=== PATIENT | male | born 1955 | race Caucasian/White ===

== ENCOUNTER 2016-07-22 11:30 | Inpatient (IN) | payer MEDICAID ==
[~2016-07-22] VITALS: Ht 193 cm; Wt 117.5 kg
[~2016-07-22 11:30] MED LIST: METH40TA2 PO
[2016-07-22] MEDS ORDERED: IPRATROPIUM NEB FS 0.5 MG/2.5 ML AMPUL.NEB ONE ×2 (12:47→15:29)
[2016-07-22] MEDS ORDERED: ALBUTEROL FS 2.5 MG/3 ML VIAL.NEB ONE ×3 (12:47→15:29)
[2016-07-22] MEDS ORDERED: methylPREDNISolone SOD SUCC 125 MG/2ML VIAL ONE (12:53)
[2016-07-22] MEDS ORDERED: IPRATROPIUM NEB FS 0.5 MG/2.5 ML AMPUL.NEB NEB ONE ×2 (13:00→15:30)
[2016-07-22] MEDS ORDERED: ALBUTEROL FS 2.5 MG/3 ML VIAL.NEB NEB ONE ×3 (13:00→15:30)
[2016-07-22] MEDS ORDERED: methylPREDNISolone SOD SUCC 125 MG/2ML VIAL IV ONE (13:00)
[2016-07-22 13:24] LABS: BASOPHILS % (AUTO) 0.3 % (0.0-2.0); DIFF TOTAL % 100 %; EOSINOPHILS # (AUTO) 0.2 /CMM (0.0-0.7); EOSINOPHILS % (AUTO) 2.9 % (0.0-6.0); HEMATOCRIT 43 % (39-51); HEMOGLOBIN 14.1 g/dL (13.5-17.5); LYMPHOCYTES # (AUTO) 3.1 /CMM (0.8-4.8); LYMPHOCYTES % (AUTO) 42.3 % (20.0-44.0); MEAN CORPUSCULAR HEMOGLOBIN 31 PG (26.0-33.0); MEAN CORPUSCULAR HGB CONC 33 g/dl (31.0-36.0); MEAN CORPUSCULAR VOLUME 95 fL (80-96); MONOCYTES # (AUTO) 0.7 /CMM (0.1-1.30); MONOCYTES % (AUTO) 9.4 % (2.0-12.0); NEUTROPHILS # (AUTO) 3.3 /CMM (1.8-8.9); NEUTROPHILS % (AUTO) 45.1 % (43.0-81.0); PLATELET COUNT (AUTO) 169 /CMM (150-450); RED BLOOD CELL COUNT(AUTO) 4.51 MIL/uL (4.5-6.0); WHITE BLOOD COUNT (AUTO) 7.4 K/uL (4.3-11.0)
[2016-07-22 13:31] LABS: ANION GAP 9 (5-14); CALCIUM, SERUM 8.5 mg/dL (8.5-10.1); CARBON DIOXIDE 32 mmol/L (21-32); CHLORIDE 104 mmol/L (98-107); GFR 76 mL/min (>60); GLUCOSE 66 mg/dL (74-106); POTASSIUM 4.5 mmol/L (3.5-5.1); SODIUM SERUM 140 mmol/L (136-145); UREA NITROGEN, BLOOD 21 mg/dL (7-18)
[2016-07-22 13:36] LABS: TROPONIN I < 0.017 ng/mL (0.00-0.056)
[2016-07-22 13:43] LABS: ALANINE AMINOTRANSFERASE 98 U/L (12-78); ALBUMIN 3.5 g/dL (3.4-5.0); ASPARTATE AMINOTRANSFERASE 100 U/L (15-37); BILIRUBIN,DIRECT 0.1 mg/dL (0.0-0.2); BILIRUBIN,TOTAL 0.4 mg/dL (0.2-1.0); INDIRECT BILIRUBIN 0.3 mg/dL (0.0-1.1)
[2016-07-22] MEDS ORDERED: DEXAMETHASONE SOD PHOSPHATE 10 MG/ML VIAL IV ONE (15:30)
[2016-07-22] MEDS ORDERED: DEXAMETHASONE SOD PHOSPHATE 10 MG/ML VIAL ONE (15:59)
[2016-07-22] MEDS ORDERED: IV SET PRIMARY PUMP SET 1 EA INFUS.SET MC ONE ×2 (15:59→16:08)
[2016-07-22] MEDS ORDERED: AZITHROMYCIN 500 MG in IV D5W 250 ML IV ONE (16:00)
[2016-07-22] MEDS ORDERED: ALPR2TAB2 PO (16:25)
[2016-07-22] MEDS ORDERED: ALBUTEROL FS 2.5 MG/0.5 ML VIAL.NEB NEB ONE (16:30)
[2016-07-22] MEDS ORDERED: LORAZEPAM 0.5 MG TABLET PO PRN (17:00)
[2016-07-22] MEDS ORDERED: MAGNESIUM HYDROXIDE 30 ML UDC PO PRN (17:00)
[2016-07-22] MEDS: methylPREDNISolone SOD SUCC 125 MG/2ML VIAL IV SCH ×2 (17:00→21:43)
[2016-07-22] MEDS ORDERED: ACETAMINOPHEN 325 MG TABLET PO PRN (17:00)
[2016-07-22] MEDS ORDERED: HYDROCODONE/APAP 5/325MG 1 EACH TABLET PO PRN (17:00)
[2016-07-22] MEDS ORDERED: MAG HYDROX/AL HYDROX/SIMETH 30 ML UDC PO PRN (17:00)
[2016-07-22] MEDS ORDERED: ZOLPIDEM TARTRATE 5 MG TABLET PO PRN (17:00)
[2016-07-22] MEDS ORDERED: ONDANSETRON HCL/PF 4 MG/2 ML VIAL IVP PRN (17:00)
[2016-07-22] MEDS ORDERED: Z GUARD REMEDY 2 OZ OINT TP PRN (17:00)
[2016-07-22 20:00] VITALS: BP 129/57
[2016-07-22] MEDS: ALPRAZOLAM 1 MG TABLET PO SCH (21:43)
[2016-07-23 08:00] VITALS: BP 109/66
[2016-07-23] MEDS: PANTOPRAZOLE 40 MG TABLET.DR PO SCH (08:17)
[2016-07-23] MEDS ORDERED: LEVOFLOXACIN 500 MG /D5W 100ML 500 MG in PREMIX 1 EA IV SCH (08:30)
[2016-07-23] MEDS: ENOXAPARIN SODIUM 40 MG/0.4 ML DISP.SYRIN SQ SCH (08:37)
[2016-07-23] MEDS: methylPREDNISolone SOD SUCC 125 MG/2ML VIAL IV SCH ×4 (09:35→21:18)
[2016-07-23] MEDS ORDERED: SECONDARY IV SET 1 EA INFUS.SET MC ONE (11:07)
[2016-07-23] MEDS ORDERED: IV NS 0.9% 250 ML IV ONE (11:10)
[2016-07-23] MEDS ORDERED: IV SET PRIMARY PUMP SET 1 EA INFUS.SET MC ONE (11:11)
[2016-07-23] MEDS ORDERED: METHADONE HCL 10 MG TABLET PO SCH (11:30)
[2016-07-23] MEDS ORDERED: CEFTRIAXONE 1 G in IV D5W 50 ML IV SCH (13:30)
[2016-07-23] MEDS: METHADONE HCL 10 MG TABLET PO SCH (13:36)
[2016-07-23 16:00] VITALS: BP 115/67
[2016-07-23] MEDS ORDERED: AZITHROMYCIN 500 MG in IV D5W 250 ML IV SCH (16:00)
[2016-07-23 17:05] LABS: DIFF TOTAL % 100 %; HEMATOCRIT 43 % (39-51); LYMPHOCYTES # (AUTO) 1.4 /CMM (0.8-4.8); LYMPHOCYTES % (AUTO) 7.2 % (20.0-44.0); MEAN CORPUSCULAR HEMOGLOBIN 31 PG (26.0-33.0); MEAN CORPUSCULAR HGB CONC 32 g/dl (31.0-36.0); MEAN CORPUSCULAR VOLUME 96 fL (80-96); MONOCYTES # (AUTO) 0.3 /CMM (0.1-1.30); MONOCYTES % (AUTO) 1.5 % (2.0-12.0); NEUTROPHILS % (AUTO) 91.3 % (43.0-81.0); PLATELET COUNT (AUTO) 178 /CMM (150-450); RED BLOOD CELL COUNT(AUTO) 4.49 MIL/uL (4.5-6.0); WHITE BLOOD COUNT (AUTO) 19.7 K/uL (4.3-11.0)
[2016-07-23 17:16] LABS: CALCIUM, SERUM 8.9 mg/dL (8.5-10.1); CREATININE 1.3 mg/dL (0.6-1.3); PHOSPHORUS 2.1 mg/dL (2.5-4.9)
[2016-07-23 20:00] VITALS: BP 128/71
[2016-07-23] MEDS: ALPRAZOLAM 1 MG TABLET PO SCH (21:18)
[2016-07-24 06:34] LABS: DIFF TOTAL % 100 %; HEMATOCRIT 44 % (39-51); HEMOGLOBIN 14.3 g/dL (13.5-17.5); LYMPHOCYTES # (AUTO) 1.4 /CMM (0.8-4.8); LYMPHOCYTES % (AUTO) 7.5 % (20.0-44.0); MEAN CORPUSCULAR HEMOGLOBIN 31 PG (26.0-33.0); MEAN CORPUSCULAR HGB CONC 33 g/dl (31.0-36.0); MEAN CORPUSCULAR VOLUME 95 fL (80-96); MONOCYTES # (AUTO) 0.2 /CMM (0.1-1.30); MONOCYTES % (AUTO) 1.2 % (2.0-12.0); NEUTROPHILS # (AUTO) 17.2 /CMM (1.8-8.9); NEUTROPHILS % (AUTO) 91.3 % (43.0-81.0); PLATELET COUNT (AUTO) 183 /CMM (150-450); RED BLOOD CELL COUNT(AUTO) 4.62 MIL/uL (4.5-6.0); WHITE BLOOD COUNT (AUTO) 18.9 K/uL (4.3-11.0)
[2016-07-24 06:56] LABS: POTASSIUM 4.8 mmol/L (3.5-5.1)
[2016-07-24] MEDS: PANTOPRAZOLE 40 MG TABLET.DR PO SCH (07:24)
[2016-07-24 08:00] VITALS: BP 116/78
[2016-07-24] MEDS: METHADONE HCL 10 MG TABLET PO SCH (08:19)
[2016-07-24] MEDS: ENOXAPARIN SODIUM 40 MG/0.4 ML DISP.SYRIN SQ SCH (08:24)
[2016-07-24] MEDS: methylPREDNISolone SOD SUCC 125 MG/2ML VIAL IV SCH (09:40)
[2016-07-24] MEDS ORDERED: IPRA3AMP IH (12:33)
[2016-07-24] MEDS ORDERED: PRED20TA PO (12:33)
== END 2016-07-24 14:00 | disposition home or self-care (01) | DRG 140 ==
LOC: ER 11:34 → TELE 17:51 → MED 22:15
PROVIDERS: ADMIT Internal Medicine; ATTEND Internal Medicine
DX: J44.1 Chronic obstructive pulmonary disease with (acute) exacerbation (principal); K74.60 Unspecified cirrhosis of liver; F32.9 Major depressive disorder, single episode, unspecified; F41.9 Anxiety disorder, unspecified; F17.210 Nicotine dependence, cigarettes, uncomplicated; R25.1 Tremor, unspecified
CPT/HCPCS: 36415; 71010-TC; 80048-TC; 80076-TC; 82962-TC; 83735-TC; 83880; 84100-TC; 84484-TC; 85025-TC; 87040-TC; 87081-TC; 87400; A4216; A4606; J0456; J0696; J1100; J1650; J1956; J2930; J7050; J7060; Z7610

== ENCOUNTER 2017-08-15 15:43 | Emergency (ER) | payer MEDICAID ==
[~2017-08-15] VITALS: Ht 193 cm; Wt 120.7 kg
[~2017-08-15 15:43] MED LIST changes: +ALPR2TAB2 PO; +IPRA3AMP IH; -METH40TA2 PO; +PRED20TA PO
[2017-08-15 15:50] VITALS: BP 130/83
[2017-08-15] MEDS ORDERED: TDAP [DIPH/PERTUSSIS/TET] 0.5 ML VIAL IM ONE ×2 (16:13→16:30)
[2017-08-15] MEDS ORDERED: CEFAZOLIN 1 GM VIAL IM ONE (17:00)
[2017-08-15] MEDS ORDERED: WATER FOR INJECTION,STERILE 10 ML ONE (17:02)
[2017-08-15] MEDS ORDERED: CEFAZOLIN 1 GM ONE (17:02)
== END 2017-08-15 17:14 | disposition home or self-care (01) ==
LOC: ER 15:47
DX: S61.230A Puncture wound without foreign body of right index finger without damage to nail, initial encounter (principal); F41.9 Anxiety disorder, unspecified; F17.200 Nicotine dependence, unspecified, uncomplicated; F11.10 Opioid abuse, uncomplicated; X58.XXXA Exposure to other specified factors, initial encounter; Y93.89 Activity, other specified; Y92.89 Other specified places as the place of occurrence of the external cause; Y99.8 Other external cause status
CPT/HCPCS: 73130-TC; 90715; A4606; A6402; J0690; Z7610

== ENCOUNTER 2017-10-01 17:05 | Emergency (ER) | payer MEDICAID, OTHER ==
[~2017-10-01] VITALS: Ht 167.6 cm; Wt 119.1 kg
[~2017-10-01 17:05] MED LIST changes: -IPRA3AMP IH; +IPRA3AMP23 IH
[2017-10-01] MEDS ORDERED: ACETAMINOPHEN ES 500 MG TABLET ONE (17:58)
[2017-10-01] MEDS ORDERED: ACETAMINOPHEN ES 500 MG TABLET PO ONE (18:00)
[2017-10-01] MEDS ORDERED: IV NS 0.9% 1,000 ML BAG IV ONE (18:00)
[2017-10-01 18:03] LABS: BASOPHILS # (AUTO) 0.1 /CMM (0.0-0.2); EOSINOPHILS % (AUTO) 4.4 % (0.0-6.0); HEMATOCRIT 39 % (39-51); HEMOGLOBIN 13.1 g/dL (13.5-17.5); LYMPHOCYTES # (AUTO) 1.6 /CMM (0.8-4.8); LYMPHOCYTES % (AUTO) 34.9 % (20.0-44.0); MEAN CORPUSCULAR HGB CONC 33 g/dl (31.0-36.0); MEAN CORPUSCULAR VOLUME 96 fL (80-96); MONOCYTES # (AUTO) 0.7 /CMM (0.1-1.30); MONOCYTES % (AUTO) 15.4 % (2.0-12.0); NEUTROPHILS # (AUTO) 2.1 /CMM (1.8-8.9); NEUTROPHILS % (AUTO) 43.3 % (43.0-81.0); PLATELET COUNT (AUTO) 113 /CMM (150-450); RDW COEFFICIENT OF VARIATION 13.7 (11.5-15.0); WHITE BLOOD COUNT (AUTO) 4.7 K/uL (4.3-11.0)
--- NOTE | 2017-10-01 18:06 | NUR ---
PST SUPERVISOR AT BEDSIDE
[2017-10-01 18:22] LABS: INR 1.01 (0.85-1.15); TROPONIN I < 0.017 ng/mL (0.00-0.056)
[2017-10-01 18:33] LABS: CARBON DIOXIDE 28 mmol/L (21-32); CHLORIDE 104 mmol/L (98-107); POTASSIUM 4.2 mmol/L (3.5-5.1); SODIUM SERUM 137 mmol/L (136-145)
[2017-10-01 18:34] LABS: CALCIUM, SERUM 8.3 mg/dL (8.5-10.1); CREATININE 0.9 mg/dL (0.6-1.3); GLUCOSE 105 mg/dL (74-106); UREA NITROGEN, BLOOD 19 mg/dL (7-18)
--- NOTE | 2017-10-01 20:07 | NUR ---
DR. PEÑA AT BEDSIDE SPEAKING TO PT REGARDING RESULTS.
--- NOTE | 2017-10-01 20:18 | NUR ---
IV removed. Catheter intact and site benign. Pressure and 4x4 applied to site. No bleeding noted. Patient discharged to home in stable condition. Written and verbal after care instructions given. Patient verbalizes understanding of instruction. ambulatory with a steady gait
[2017-10-01 20:19] VITALS: BP 124/70
== END 2017-10-01 20:20 | disposition home or self-care (01) ==
LOC: ER 17:14
DX: J40 Bronchitis, not specified as acute or chronic (principal); F41.9 Anxiety disorder, unspecified; F17.200 Nicotine dependence, unspecified, uncomplicated; F11.10 Opioid abuse, uncomplicated
CPT/HCPCS: 36415; 71045-TC; 80048-TC; 84484-TC; 85025-TC; 85730-TC; A4606; J7030; Z7610

== ENCOUNTER 2017-10-02 12:14 | Emergency (ER) | payer MEDICAID, OTHER ==
[~2017-10-02] VITALS: Ht 193 cm; Wt 90.7 kg
[2017-10-02 12:17] VITALS: BP 124/60
[2017-10-02] MEDS ORDERED: IPRATROPIUM NEB FS 0.5 MG/2.5 ML AMPUL.NEB NEB ONE (13:00)
[2017-10-02] MEDS ORDERED: predniSONE 20 MG TABLET PO ONE (13:00)
[2017-10-02] MEDS ORDERED: ALBUTEROL FS 2.5 MG/3 ML VIAL.NEB NEB ONE (13:00)
[2017-10-02] MEDS ORDERED: predniSONE 20 MG TABLET ONE (13:09)
[2017-10-02] MEDS ORDERED: IPRATROPIUM NEB FS 0.5 MG/2.5 ML AMPUL.NEB ONE (13:19)
[2017-10-02] MEDS ORDERED: ALBUTEROL FS 2.5 MG/3 ML VIAL.NEB ONE (13:19)
== END 2017-10-02 14:26 | disposition home or self-care (01) ==
LOC: ER 12:20
DX: J40 Bronchitis, not specified as acute or chronic (principal); R05 Cough; F41.9 Anxiety disorder, unspecified; F17.200 Nicotine dependence, unspecified, uncomplicated; F11.10 Opioid abuse, uncomplicated
CPT/HCPCS: A4606; Z7610

== ENCOUNTER 2017-10-06 19:09 | Emergency (ER) | payer MEDICAID, OTHER ==
[~2017-10-06] VITALS: Ht 193 cm; Wt 108.9 kg
[2017-10-06 19:18] VITALS: BP 125/76
[2017-10-06] MEDS ORDERED: ALBUTEROL FS 2.5 MG/3 ML VIAL.NEB CONTNEB ONE (19:30)
[2017-10-06] MEDS ORDERED: diphenhydrAMINE HCL 50 MG CAPSULE PO ONE (19:30)
[2017-10-06] MEDS ORDERED: diphenhydrAMINE HCL 25 MG CAPSULE ONE (19:48)
--- NOTE | 2017-10-06 19:50 | NUR ---
CALLED RT FOR BREATHING TX.
[2017-10-06] MEDS ORDERED: ALBUTEROL FS 2.5 MG/3 ML VIAL.NEB ONE (20:06)
--- NOTE | 2017-10-06 20:10 | NUR ---
RT AT BEDSIDE BREATHING TX.
== END 2017-10-06 20:30 | disposition home or self-care (01) ==
LOC: ER 19:10
DX: J42 Unspecified chronic bronchitis (principal); F41.9 Anxiety disorder, unspecified; Z87.891 Personal history of nicotine dependence
CPT/HCPCS: A4606; Q0163; Z7610

== ENCOUNTER 2017-10-07 14:52 | Emergency (ER) | payer MEDICAID, OTHER ==
[~2017-10-07] VITALS: Ht 193 cm; Wt 108.9 kg
[2017-10-07 14:52] VITALS: BP 155/84
== END 2017-10-07 15:34 | disposition home or self-care (01) ==
LOC: ER 14:54
DX: L03.116 Cellulitis of left lower limb (principal); Z76.0 Encounter for issue of repeat prescription; F41.9 Anxiety disorder, unspecified; J44.9 Chronic obstructive pulmonary disease, unspecified; F11.10 Opioid abuse, uncomplicated; F10.10 Alcohol abuse, uncomplicated; F17.200 Nicotine dependence, unspecified, uncomplicated; Z86.19 Personal history of other infectious and parasitic diseases
CPT/HCPCS: 99283; A4606; Z7610

== ENCOUNTER 2017-10-08 19:35 | Emergency (ER) | payer MEDICAID, OTHER ==
[~2017-10-08] VITALS: Ht 193 cm; Wt 108.9 kg
[2017-10-08 19:40] VITALS: BP 118/69
== END 2017-10-08 20:55 | disposition home or self-care (01) ==
LOC: ER 19:38
DX: L03.116 Cellulitis of left lower limb (principal); B19.20 Unspecified viral hepatitis C without hepatic coma; F41.9 Anxiety disorder, unspecified; J44.9 Chronic obstructive pulmonary disease, unspecified; F17.200 Nicotine dependence, unspecified, uncomplicated; F11.10 Opioid abuse, uncomplicated; Z86.19 Personal history of other infectious and parasitic diseases
CPT/HCPCS: 99281; A4606; Z7610; Z7502

== ENCOUNTER 2018-06-20 11:44 | Emergency (ER) | payer MEDICAID ==
[~2018-06-20] VITALS: Ht 193 cm; Wt 108.9 kg
[2018-06-20] MEDS ORDERED: methylPREDNISolone SOD SUCC 125 MG/2ML VIAL IV ONE (13:00)
[2018-06-20] MEDS ORDERED: IV NS 0.9% 1,000 ML BAG IV ONE (13:00)
[2018-06-20] MEDS ORDERED: IPRATROPIUM NEB FS 0.5 MG/2.5 ML AMPUL.NEB NEB ONE (13:00)
[2018-06-20] MEDS ORDERED: ALBUTEROL FS 2.5 MG/3 ML VIAL.NEB NEB ONE (13:00)
[2018-06-20] MEDS ORDERED: IPRATROPIUM NEB FS 0.5 MG/2.5 ML AMPUL.NEB ONE (13:10)
[2018-06-20] MEDS ORDERED: ALBUTEROL FS 2.5 MG/3 ML VIAL.NEB ONE (13:10)
[2018-06-20] MEDS ORDERED: methylPREDNISolone SOD SUCC 125 MG/2ML VIAL ONE (13:21)
--- NOTE | 2018-06-20 14:47 | NUR ---
IV removed. Catheter intact and site benign. Pressure and 4x4 applied to site. No bleeding noted.Patient discharged to home in stable condition. Written and verbal after care instructions given. Patient verbalizes understanding of instruction.
[2018-06-20 14:48] VITALS: BP 110/65
== END 2018-06-20 14:49 | disposition home or self-care (01) ==
LOC: ER 11:54
DX: J44.1 Chronic obstructive pulmonary disease with (acute) exacerbation (principal); F10.10 Alcohol abuse, uncomplicated; F17.200 Nicotine dependence, unspecified, uncomplicated; F41.9 Anxiety disorder, unspecified; E86.0 Dehydration; Z86.19 Personal history of other infectious and parasitic diseases
CPT/HCPCS: 94640 ×2; 96361; 96374; 99284; A4606; J2930; J7030; Z7610

== ENCOUNTER 2018-07-10 17:28 | Emergency (ER) | payer MEDICAID ==
[~2018-07-10] VITALS: Ht 193 cm; Wt 125.6 kg
--- NOTE | 2018-07-10 17:46 | NUR ---
BIB SELF W C/O BILATERAL LEG EDEMA +3 AND PAIN STARTED AT 2PM AND GOT WORST 4PM. TO ER BED 9, HOOKED TO MONITOR, AWAITING MD GOTTI
--- NOTE | 2018-07-10 17:50 | NUR ---
DR ALLAN AT [facility]
[2018-07-10 18:28] LABS: BASOPHILS % (AUTO) 0.6 % (0.0-2.0); EOSINOPHILS % (AUTO) 3.2 % (0.0-6.0); HEMATOCRIT 41 % (39-51); HEMOGLOBIN 13.3 g/dL (13.5-17.5); LYMPHOCYTES # (AUTO) 2.1 /CMM (0.8-4.8); LYMPHOCYTES % (AUTO) 40.2 % (20.0-44.0); MEAN CORPUSCULAR HGB CONC 32 g/dl (31.0-36.0); MEAN CORPUSCULAR VOLUME 101 fL (80-96); MONOCYTES # (AUTO) 0.7 /CMM (0.1-1.30); MONOCYTES % (AUTO) 12.6 % (2.0-12.0); NEUTROPHILS # (AUTO) 2.3 /CMM (1.8-8.9); NEUTROPHILS % (AUTO) 43.4 % (43.0-81.0); PLATELET COUNT (AUTO) 113 /CMM (150-450); RED BLOOD CELL COUNT(AUTO) 4.06 MIL/uL (4.5-6.0); WHITE BLOOD COUNT (AUTO) 5.2 K/uL (4.3-11.0)
[2018-07-10 18:37] LABS: CALCIUM, SERUM 7.8 mg/dL (8.5-10.1); CARBON DIOXIDE 27 mmol/L (21-32); CHLORIDE 108 mmol/L (98-107); CREATININE 0.9 mg/dL (0.6-1.3); GLUCOSE 84 mg/dL (74-106); POTASSIUM 4.7 mmol/L (3.5-5.1); SODIUM SERUM 138 mmol/L (136-145); UREA NITROGEN, BLOOD 17 mg/dL (7-18)
--- NOTE | 2018-07-10 18:52 | NUR ---
US TECH AT BEDSIDE
[2018-07-10 18:55] LABS: ALANINE AMINOTRANSFERASE 81 U/L (12-78); ALBUMIN 2.9 g/dL (3.4-5.0); ALKALINE PHOSPHATASE 119 U/L (46-116); ASPARTATE AMINOTRANSFERASE 90 U/L (15-37); B-TYPE NATRIURETIC PEPTIDE 171 PG/ML (0-125); BILIRUBIN,DIRECT 0.3 mg/dL (0.0-0.2); BILIRUBIN,TOTAL 1.3 mg/dL (0.2-1.0); TOTAL PROTEIN, SERUM 6.1 g/dL (6.4-8.2)
[2018-07-10] MEDS ORDERED: FUROSEMIDE 20 MG/2 ML VIAL IV ONE (19:30)
[2018-07-10] MEDS ORDERED: CALCIUM CARBONATE (1250) 500 MG TABLET PO SCH (19:30)
--- NOTE | 2018-07-10 19:38 | NUR ---
REPORT GIVEN TO JORGE TORRES FOR LORIE
[2018-07-10] MEDS ORDERED: FUROSEMIDE 20 MG/2 ML VIAL ONE (19:39)
[2018-07-10] MEDS ORDERED: CALCIUM CARBONATE 500 MG TAB.CHEW ONE (19:40)
[2018-07-10] MEDS ORDERED: FUROSEMIDE 20 MG TABLET ONE (19:49)
--- NOTE | 2018-07-10 19:53 | NUR ---
Patient discharged to home in stable condition. Written and verbal after care instructions given. Patient verbalizes understanding of instruction. IV removed. Catheter intact and site benign. Pressure and 4x4 applied to site. No bleeding noted. Pt ambulatory with a steady gait
--- NOTE | 2018-07-10 19:53 | NUR ---
PER VERBAL MD ORDER, ADMINSITERED LASIX 20MG PO INSTEAD OF IV
[2018-07-10 20:25] VITALS: BP 129/78
[2018-07-10] MEDS ORDERED: FUROSEMIDE 20 MG TABLET PO ONE (20:30)
== END 2018-07-10 20:26 | disposition home or self-care (01) ==
LOC: ER 17:29
DX: R60.0 Localized edema (principal); J44.9 Chronic obstructive pulmonary disease, unspecified; F41.9 Anxiety disorder, unspecified; F10.10 Alcohol abuse, uncomplicated; F17.200 Nicotine dependence, unspecified, uncomplicated; Y90.9 Presence of alcohol in blood, level not specified; Z86.19 Personal history of other infectious and parasitic diseases
CPT/HCPCS: 36415; 71045; 80048; 80076; 83880; 84484; 85025; 85730; 93005; 93970; 99284; A4606; J1940; Z7610

== ENCOUNTER 2018-07-19 14:20 | Emergency (ER) | payer MEDICAID ==
[~2018-07-19] VITALS: Ht 193 cm; Wt 122.5 kg
--- NOTE | 2018-07-19 14:36 | NUR ---
C/O BLE EDEMA x 1 WEEK, WORST TODAY, PATIENT A/OX3, NAD, WILL MONITOR
[2018-07-19 15:27] LABS: BASOPHILS # (AUTO) 0.1 /CMM (0.0-0.2); BASOPHILS % (AUTO) 1.2 % (0.0-2.0); EOSINOPHILS % (AUTO) 3.5 % (0.0-6.0); HEMATOCRIT 41 % (39-51); HEMOGLOBIN 13.6 g/dL (13.5-17.5); LYMPHOCYTES % (AUTO) 37.8 % (20.0-44.0); MEAN CORPUSCULAR HGB CONC 34 g/dl (31.0-36.0); MEAN CORPUSCULAR VOLUME 100 fL (80-96); MONOCYTES # (AUTO) 0.6 /CMM (0.1-1.30); NEUTROPHILS # (AUTO) 2.4 /CMM (1.8-8.9); NEUTROPHILS % (AUTO) 45.5 % (43.0-81.0); PLATELET COUNT (AUTO) 189 /CMM (150-450); RED BLOOD CELL COUNT(AUTO) 4.07 MIL/uL (4.5-6.0); WHITE BLOOD COUNT (AUTO) 5.2 K/uL (4.3-11.0)
[2018-07-19 15:35] LABS: CALCIUM, SERUM 8.3 mg/dL (8.5-10.1); CARBON DIOXIDE 31 mmol/L (21-32); CHLORIDE 103 mmol/L (98-107); GLUCOSE 128 mg/dL (74-106); POTASSIUM 4.2 mmol/L (3.5-5.1); SODIUM SERUM 137 mmol/L (136-145); UREA NITROGEN, BLOOD 20 mg/dL (7-18)
[2018-07-19 15:56] LABS: ALANINE AMINOTRANSFERASE 75 U/L (12-78); ALBUMIN 3.2 g/dL (3.4-5.0); ALKALINE PHOSPHATASE 125 U/L (46-116); ASPARTATE AMINOTRANSFERASE 83 U/L (15-37); B-TYPE NATRIURETIC PEPTIDE 215 PG/ML (0-125); BILIRUBIN,DIRECT 0.2 mg/dL (0.0-0.2); BILIRUBIN,TOTAL 0.7 mg/dL (0.2-1.0); TOTAL PROTEIN, SERUM 6.5 g/dL (6.4-8.2)
[2018-07-19] MEDS ORDERED: VANCOMYCIN 1.5 GM in IV D5W 250 ML IV ONE (16:00)
--- NOTE | 2018-07-19 16:00 | NUR ---
PATIENT IN BED, NAD, WILL MONITOR
--- NOTE | 2018-07-19 18:38 | NUR ---
Patient discharged to home in stable condition. PIV removed, applied gauze and tape. Written and verbal after care instructions given. Patient verbalizes understanding of instruction.
[2018-07-19 18:40] VITALS: BP 125/76
== END 2018-07-19 18:41 | disposition home or self-care (01) ==
LOC: ER 14:22
DX: L03.116 Cellulitis of left lower limb (principal); R94.31 Abnormal electrocardiogram [ECG] [EKG]; J44.9 Chronic obstructive pulmonary disease, unspecified; F41.9 Anxiety disorder, unspecified; M19.90 Unspecified osteoarthritis, unspecified site; F17.200 Nicotine dependence, unspecified, uncomplicated; Z79.899 Other long term (current) drug therapy; Z86.19 Personal history of other infectious and parasitic diseases
CPT/HCPCS: 36415; 71045-TC; 80048-TC; 80076-TC; 83605-TC; 83880; 84484-TC; 85025-TC; 85730-TC; 87040-TC; 93971-TC; J3370; J7060

== ENCOUNTER 2018-08-08 17:57 | Emergency (ER) | payer MEDICAID ==
[~2018-08-08] VITALS: Ht 193 cm; Wt 121.1 kg
--- NOTE | 2018-08-08 18:05 | NUR ---
BIB SELF W C/O BLE SWELLING x 2 DAYS, PS 8, SOB, TO ER BED 2, HOOKED TO MONITOR, AWAITING MD GOTTI
--- NOTE | 2018-08-08 18:20 | NUR ---
DR LEVIN AT BEDSIDE
[2018-08-08 18:46] VITALS: BP 126/68
--- NOTE | 2018-08-08 18:46 | NUR ---
Patient discharged to home in stable condition. Written and verbal after care instructions given. Patient verbalizes understanding of instruction.
== END 2018-08-08 18:47 | disposition home or self-care (01) ==
LOC: ER 17:57
DX: R60.0 Localized edema (principal); F41.9 Anxiety disorder, unspecified; J44.9 Chronic obstructive pulmonary disease, unspecified; M19.90 Unspecified osteoarthritis, unspecified site; F17.200 Nicotine dependence, unspecified, uncomplicated; Z86.19 Personal history of other infectious and parasitic diseases; Z79.899 Other long term (current) drug therapy

== ENCOUNTER 2018-10-13 23:10 | Emergency (ER) | payer MEDICAID ==
[~2018-10-13] VITALS: Ht 193 cm; Wt 122.5 kg
--- NOTE | 2018-10-13 23:33 | NUR ---
BIBSELF C/O HEMATURIA AND LOWER BACK PAIN SINCE 5PM TODAY. PT AOX4 RR EVEN AND UNLABORED. NO SOB NOTED. NO NVD AT THIS TIME. PT GOWNED AND PLACED ON MONITOR. WAITING FOR MD GOTTI.
--- NOTE | 2018-10-14 00:18 | NUR ---
URINE COLLECTED. SENT TO LAB
[2018-10-14 00:52] LABS: APPEARANCE,URINE Clear (CLEAR); BILIRUBIN,URINE SMALL (NEGATIVE); BLOOD, URINE Negative Ery/uL (NEGATIVE); COLOR,URINE Orange (YELLOW); KETONES,URINE Trace (NEGATIVE); LEUKOCYTE ESTERASE ,URINE Negative (NEGATIVE); NITRITE, URINE Positive (NEGATIVE); PH,URINE 5.5 (5.0-8.0); PROTEIN,URINE 30 mg/dl (NEGATIVE); UGLUCOSE Negative (NEGATIVE)
[2018-10-14 01:13] LABS: BACTERIA,URINE Few /HPF (None Seen); RBC,URINE 0-2 /HPF (0-2); SQUAMOUS EPITHELIAL CELL,UR Few /HPF (None Seen); WBC,URINE 0-2 /HPF (0-3)
[2018-10-14] MEDS ORDERED: LEVOFLOXACIN (750 MG) 750 MG TABLET PO STA (01:31)
[2018-10-14] MEDS ORDERED: LEVOFLOXACIN (750 MG) 750 MG TABLET ONE (01:38)
--- NOTE | 2018-10-14 01:42 | NUR ---
DPatient discharged to home in stable condition. Written and verbal after care instructions given. Patient verbalizes understanding of instruction. ambulatory with a steady gait
[2018-10-14 01:46] VITALS: BP 113/71
== END 2018-10-14 01:46 | disposition home or self-care (01) ==
LOC: ER 23:15
DX: N39.0 Urinary tract infection, site not specified (principal); F17.200 Nicotine dependence, unspecified, uncomplicated; J44.9 Chronic obstructive pulmonary disease, unspecified; F32.9 Major depressive disorder, single episode, unspecified; F41.9 Anxiety disorder, unspecified; R25.1 Tremor, unspecified; F10.10 Alcohol abuse, uncomplicated; Y90.9 Presence of alcohol in blood, level not specified; Z86.19 Personal history of other infectious and parasitic diseases
CPT/HCPCS: 81000-TC; 87086-TC

== ENCOUNTER 2019-12-06 01:53 | Emergency (ER) | payer MEDICAID ==
[~2019-12-06] VITALS: Ht 190.5 cm; Wt 122.5 kg
--- NOTE | 2019-12-06 02:13 | NUR ---
BIBSELF C/O LEFT LEG SWELLING/ PAIN S/P GLF X 2 DAYS AGO. PT NOTED WITH L L ROAD RASH TO ER BED 1 AWAITING MD GOTTI
[2019-12-06 05:13] LABS: BASOPHILS % (AUTO) 0.7 % (0.0-2.0); EOSINOPHILS % (AUTO) 2.6 % (0.0-6.0); HEMATOCRIT 42 % (39-51); HEMOGLOBIN 13.7 g/dL (13.5-17.5); LYMPHOCYTES # (AUTO) 2.7 /CMM (0.8-4.8); LYMPHOCYTES % (AUTO) 36.8 % (20.0-44.0); MEAN CORPUSCULAR HGB CONC 33 g/dl (31.0-36.0); MEAN CORPUSCULAR VOLUME 99 fL (80-96); MONOCYTES # (AUTO) 0.8 /CMM (0.1-1.30); MONOCYTES % (AUTO) 10.7 % (2.0-12.0); NEUTROPHILS # (AUTO) 3.6 /CMM (1.8-8.9); NEUTROPHILS % (AUTO) 49.2 % (43.0-81.0); PLATELET COUNT (AUTO) 176 /CMM (150-450); RED BLOOD CELL COUNT(AUTO) 4.22 MIL/uL (4.5-6.0); WHITE BLOOD COUNT (AUTO) 7.3 K/uL (4.3-11.0)
[2019-12-06 05:21] LABS: CALCIUM, SERUM 8.6 mg/dL (8.5-10.1); CREATININE 1.1 mg/dL (0.6-1.3); POTASSIUM 4.5 mmol/L (3.5-5.1)
[2019-12-06] MEDS ORDERED: CLINDAMYCIN 900 MG/6 ML VIAL ONE (05:34)
--- NOTE | 2019-12-06 05:43 | NUR ---
Patient discharged to home in stable condition. Written and verbal after care instructions given. Patient verbalizes understanding of instruction.
[2019-12-06 05:44] VITALS: BP 130/77
[2019-12-06] MEDS ORDERED: CLINDAMYCIN 900 MG/6 ML VIAL IM ONE (06:00)
== END 2019-12-06 05:44 | disposition home or self-care (01) ==
LOC: ER 01:53
DX: L03.116 Cellulitis of left lower limb (principal); J44.9 Chronic obstructive pulmonary disease, unspecified; Z86.19 Personal history of other infectious and parasitic diseases; Z79.899 Other long term (current) drug therapy
CPT/HCPCS: 36415; 73590; 80048; 85025; 87040 ×2; 96372; 99284; J3490

== ENCOUNTER 2019-12-07 03:53 | Emergency (ER) | payer MEDICAID ==
[~2019-12-07] VITALS: Ht 193 cm; Wt 122.5 kg
[2019-12-07 04:01] VITALS: BP 133/80
[2019-12-07] MEDS ORDERED: HYDROCODONE/APAP 5/325MG 1 EACH TABLET ONE (04:22)
[2019-12-07] MEDS: HYDROCODONE/APAP 5/325MG 1 EACH TABLET PO ONE (04:25)
== END 2019-12-07 04:26 | disposition home or self-care (01) ==
LOC: ER 03:53
DX: L03.116 Cellulitis of left lower limb (principal); J44.9 Chronic obstructive pulmonary disease, unspecified; Z91.14 Patient's other noncompliance with medication regimen; Z86.19 Personal history of other infectious and parasitic diseases; Z79.899 Other long term (current) drug therapy

== ENCOUNTER 2019-12-13 08:36 | Emergency (ER) | payer MEDICAID ==
[~2019-12-13] VITALS: Ht 193 cm; Wt 122.5 kg
--- NOTE | 2019-12-13 08:36 | NUR ---
PT BIB SELF C/O WORSENING LEFT LEG SWELLING/REDNESS/PAIN X 3 DAYS,SCRATCHED 3 DAYS AGO, PT IS AAOX4, NOT IN RESPIRATORY DISTRESS, V/S STABLE, KEPT RESTED AND COMFORTABLE, WILL CONTINUE TO MONITOR.
--- NOTE | 2019-12-13 08:55 | NUR ---
SEEN AND EXAMINED BY .
[2019-12-13] MEDS ORDERED: PIPERACILLIN /TAZOBACTAM 3.375 G in IV D5W 50 ML IV ONE (09:00)
[2019-12-13] MEDS ORDERED: VANCOMYCIN 1 GM in IV D5W 250 ML IV ONE (09:00)
--- NOTE | 2019-12-13 09:00 | NUR ---
PT REFUSED BLOOD DRAW. AWARE.
--- NOTE | 2019-12-13 09:00 | NUR ---
PT REFUSED EKG ORDER.
--- NOTE | 2019-12-13 09:06 | NUR ---
Patient discharged to home in stable condition. Written and verbal after care instructions given. Patient verbalizes understanding of instruction.
[2019-12-13 09:10] VITALS: BP 138/66
== END 2019-12-13 09:10 | disposition home or self-care (01) ==
LOC: ER 08:36
DX: L03.116 Cellulitis of left lower limb (principal); J44.9 Chronic obstructive pulmonary disease, unspecified; F31.9 Bipolar disorder, unspecified; Z86.19 Personal history of other infectious and parasitic diseases; Z79.899 Other long term (current) drug therapy
CPT/HCPCS: J2543; J7060

== ENCOUNTER 2019-12-20 04:31 | Emergency (ER) | payer MEDICAID ==
--- NOTE | 2019-12-20 07:24 | NUR ---
SEE DOWNTIME DOCUMENTATION
== END 2019-12-20 07:26 | disposition home or self-care (01) ==
LOC: ER 04:31
DX: L03.116 Cellulitis of left lower limb (principal); L03.115 Cellulitis of right lower limb; J44.9 Chronic obstructive pulmonary disease, unspecified; Z86.19 Personal history of other infectious and parasitic diseases; Z79.899 Other long term (current) drug therapy

== ENCOUNTER 2020-04-21 06:39 | Emergency (ER) | payer MEDICAID ==
[~2020-04-21] VITALS: Ht 193 cm; Wt 117.9 kg
--- NOTE | 2020-04-21 07:03 | NUR ---
PATIENT CAME TO ER BED 10 C/O BILATERAL LEG SWELLING. HX COPD, CIRRHOSIS. PATIENT STATES THAT HE NOTICED THE SWELLLING LAST NIGHT. PRESSURE PAIN 6/10 W/ REDNESS AND SWELLING. AAOX4. NO SOB. BREATHING EVENLY AND UNLABORED ON ROOM AIR. CONNECTED TO THE MONITOR.
--- NOTE | 2020-04-21 07:10 | NUR ---
urine sent to lab
--- NOTE | 2020-04-21 07:19 | NUR ---
REPORT GIVEN TO PABLITO TORRES FOR LORIE.
[2020-04-21 07:37] LABS: BASOPHILS % (AUTO) 0.7 % (0.0-2.0); EOSINOPHILS % (AUTO) 2.4 % (0.0-6.0); HEMATOCRIT 41 % (39-51); HEMOGLOBIN 13.7 g/dL (13.5-17.5); LYMPHOCYTES # (AUTO) 2.1 /CMM (0.8-4.8); MEAN CORPUSCULAR HGB CONC 33 g/dl (31.0-36.0); MEAN CORPUSCULAR VOLUME 98 fL (80-96); MONOCYTES # (AUTO) 0.7 /CMM (0.1-1.30); MONOCYTES % (AUTO) 11.9 % (2.0-12.0); NEUTROPHILS # (AUTO) 2.9 /CMM (1.8-8.9); PLATELET COUNT (AUTO) 151 /CMM (150-450); RED BLOOD CELL COUNT(AUTO) 4.24 MIL/uL (4.5-6.0); WHITE BLOOD COUNT (AUTO) 5.9 K/uL (4.3-11.0)
[2020-04-21 07:45] LABS: BILIRUBIN,URINE NEGATIVE (NEGATIVE); BLOOD, URINE NEGATIVE Ery/uL (NEGATIVE); COLOR,URINE YELLOW (YELLOW); KETONES,URINE NEGATIVE (NEGATIVE); LEUKOCYTE ESTERASE ,URINE TRACE (NEGATIVE); NITRITE, URINE NEGATIVE (NEGATIVE); PROTEIN,URINE NEGATIVE (NEGATIVE); UGLUCOSE NEGATIVE (NEGATIVE); UROBILINOGEN,URINE 0.2 EU/dL (0.2)
[2020-04-21 07:50] LABS: APPEARANCE,URINE SLIGHTLY HAZY (CLEAR)
[2020-04-21 08:01] LABS: ALBUMIN 3.4 g/dL (3.4-5.0); BILIRUBIN,DIRECT 0.1 mg/dL (0.0-0.2); BILIRUBIN,TOTAL 0.6 mg/dL (0.2-1.0); CALCIUM, SERUM 8.7 mg/dL (8.5-10.1); CREATININE 1.3 mg/dL (0.6-1.3); POTASSIUM 4.7 mmol/L (3.5-5.1); TOTAL PROTEIN, SERUM 7.2 g/dL (6.4-8.2)
[2020-04-21 08:08] LABS: BACTERIA,URINE None seen /HPF (None Seen); RBC,URINE 0-2 /HPF (0-2); SQUAMOUS EPITHELIAL CELL,UR Few /HPF (None Seen)
--- NOTE | 2020-04-21 08:34 | NUR ---
PATIENT A/OX4, BREATHING EVEN AND UNLABORED, NO SOB NOTED, AMBULATORY WITH STEADY GAIT. Patient discharged to home in stable condition. Written and verbal after care instructions given. Patient verbalizes understanding of instruction.
[2020-04-21 08:36] VITALS: BP 135/73
== END 2020-04-21 08:37 | disposition home or self-care (01) ==
LOC: ER 06:44
DX: R60.0 Localized edema (principal); J44.9 Chronic obstructive pulmonary disease, unspecified; F41.9 Anxiety disorder, unspecified; M19.90 Unspecified osteoarthritis, unspecified site; F17.200 Nicotine dependence, unspecified, uncomplicated; Z79.899 Other long term (current) drug therapy
CPT/HCPCS: 36415; 71045-TC; 80048-TC; 80076-TC; 81000-TC; 83880; 85025-TC; 85730-TC

== ENCOUNTER 2020-04-21 20:21 | Emergency (ER) | payer MEDICAID ==
[~2020-04-21] VITALS: Ht 193 cm; Wt 108.9 kg
--- NOTE | 2020-04-21 21:10 | NUR ---
PT BIB HAT BLOCKER C/O BLE. PT AAOX4, VSS, RESPIRATIONS EVEN AND UNLABORED ON RA W/ NAD NOTED. PT CONNECTED TO THE BLUE SPLIT TRIMMER AND POX
--- NOTE | 2020-04-21 21:24 | NUR ---
MECHANICAL ARTIST DEGRASSE AT BEDSIDE
--- NOTE | 2020-04-21 21:30 | NUR ---
CALLED LAB FOR COVID SWAB
--- NOTE | 2020-04-21 21:46 | NUR ---
EKG AT BEDSIDE
[2020-04-21 21:53] LABS: BASOPHILS % (AUTO) 0.5 % (0.0-2.0); EOSINOPHILS % (AUTO) 2.7 % (0.0-6.0); HEMATOCRIT 42 % (39-51); HEMOGLOBIN 13.6 g/dL (13.5-17.5); LYMPHOCYTES # (AUTO) 1.7 /CMM (0.8-4.8); LYMPHOCYTES % (AUTO) 31.6 % (20.0-44.0); MEAN CORPUSCULAR HGB CONC 33 g/dl (31.0-36.0); MEAN CORPUSCULAR VOLUME 98 fL (80-96); MONOCYTES # (AUTO) 0.7 /CMM (0.1-1.30); MONOCYTES % (AUTO) 12.7 % (2.0-12.0); NEUTROPHILS # (AUTO) 2.9 /CMM (1.8-8.9); NEUTROPHILS % (AUTO) 52.5 % (43.0-81.0); PLATELET COUNT (AUTO) 137 /CMM (150-450); RED BLOOD CELL COUNT(AUTO) 4.25 MIL/uL (4.5-6.0); WHITE BLOOD COUNT (AUTO) 5.5 K/uL (4.3-11.0)
[2020-04-21 22:04] LABS: CALCIUM, SERUM 8.9 mg/dL (8.5-10.1); CARBON DIOXIDE 30 mmol/L (21-32); CHLORIDE 102 mmol/L (98-107); CREATININE 1.4 mg/dL (0.6-1.3); GLUCOSE 96 mg/dL (74-106); POTASSIUM 4.8 mmol/L (3.5-5.1); SODIUM SERUM 138 mmol/L (136-145); UREA NITROGEN, BLOOD 23 mg/dL (7-18)
[2020-04-21 22:15] LABS: ALANINE AMINOTRANSFERASE 40 U/L (12-78); ALBUMIN 3.4 g/dL (3.4-5.0); ALKALINE PHOSPHATASE 103 U/L (46-116); ASPARTATE AMINOTRANSFERASE 34 U/L (15-37); B-TYPE NATRIURETIC PEPTIDE 266 PG/ML (0-125); BILIRUBIN,DIRECT 0.2 mg/dL (0.0-0.2); TOTAL PROTEIN, SERUM 7.1 g/dL (6.4-8.2)
--- NOTE | 2020-04-21 22:25 | NUR ---
COVID RESULT: NEG
[2020-04-21 23:07] VITALS: BP 140/70
--- NOTE | 2020-04-21 23:07 | NUR ---
Patient discharged to home in stable condition. Written and verbal after care instructions given. Patient verbalizes understanding of instruction.IV removed. Catheter intact and site benign. Pressure and 4x4 applied to site. No bleeding noted.pt. ambulatory with a steady gait
== END 2020-04-21 23:08 | disposition home or self-care (01) ==
LOC: ER 20:25
DX: R60.0 Localized edema (principal); D69.6 Thrombocytopenia, unspecified; J44.9 Chronic obstructive pulmonary disease, unspecified; Z86.19 Personal history of other infectious and parasitic diseases; K74.60 Unspecified cirrhosis of liver; F41.9 Anxiety disorder, unspecified; Z79.899 Other long term (current) drug therapy; R00.1 Bradycardia, unspecified; F17.200 Nicotine dependence, unspecified, uncomplicated; Z20.828 Contact with and (suspected) exposure to other viral communicable diseases
CPT/HCPCS: 36415; 71045; 80048; 80076; 83880; 84484; 85025; 85730; 87426; 93005; 93971; 99285; C9803

== ENCOUNTER 2020-04-22 11:55 | Emergency (ER) | payer MEDICAID ==
[~2020-04-22] VITALS: Ht 193 cm; Wt 138.3 kg
[2020-04-22 12:03] VITALS: BP 131/64
--- NOTE | 2020-04-22 12:55 | NUR ---
Patient discharged to home in stable condition. Written and verbal after care instructions given. Patient verbalizes understanding of instruction.
== END 2020-04-22 12:55 | disposition home or self-care (01) ==
LOC: ER 11:58
DX: L03.116 Cellulitis of left lower limb (principal); L03.115 Cellulitis of right lower limb; R60.0 Localized edema; J44.9 Chronic obstructive pulmonary disease, unspecified; F41.9 Anxiety disorder, unspecified; M19.90 Unspecified osteoarthritis, unspecified site; Z79.899 Other long term (current) drug therapy

== ENCOUNTER 2020-05-14 09:24 | Emergency (ER) | payer MEDICAID ==
[~2020-05-14] VITALS: Ht 182.9 cm; Wt 136.1 kg
--- NOTE | 2020-05-14 09:30 | NUR ---
pt bibself c/o right lower extremity pain and swelling x 5 days. vs checked. awaiting md vigil.
--- NOTE | 2020-05-14 09:53 | NUR ---
Patient discharged to home in stable condition. Written and verbal after care instructions given. Patient verbalizes understanding of instruction.
[2020-05-14 09:54] VITALS: BP 129/78
== END 2020-05-14 09:54 | disposition home or self-care (01) ==
LOC: ER 09:31
DX: R60.0 Localized edema (principal); I10 Essential (primary) hypertension; F41.9 Anxiety disorder, unspecified; J44.9 Chronic obstructive pulmonary disease, unspecified; Z86.19 Personal history of other infectious and parasitic diseases; Z79.899 Other long term (current) drug therapy

== ENCOUNTER 2021-01-04 11:25 | Inpatient (IN) | payer MEDICAID, OTHER ==
[~2021-01-04] VITALS: Ht 193 cm; Wt 135.2 kg
[2021-01-04] MEDS ORDERED: ALBUTEROL FS 2.5 MG/3 ML VIAL.NEB NEB ONE (12:30)
[2021-01-04] MEDS ORDERED: IPRATROPIUM NEB FS 0.5 MG/2.5 ML AMPUL.NEB NEB ONE (12:30)
[2021-01-04] MEDS ORDERED: methylPREDNISolone SOD SUCC 125 MG/2ML VIAL IV ONE (12:30)
[2021-01-04 12:35] LABS: BASOPHILS # (AUTO) 0.1 K/uL (0.0-0.2); BASOPHILS % (AUTO) 1.3 % (0.0-2.0); EOSINOPHILS % (AUTO) 2.6 % (0.0-6.0); HEMATOCRIT 41 % (39-51); HEMOGLOBIN 13.5 g/dL (13.5-17.5); LYMPHOCYTES % (AUTO) 25.8 % (20.0-44.0); MEAN CORPUSCULAR HGB CONC 33 g/dl (31.0-36.0); MEAN CORPUSCULAR VOLUME 98 fL (80-96); MONOCYTES # (AUTO) 0.7 K/uL (0.1-1.30); MONOCYTES % (AUTO) 9.8 % (2.0-12.0); NEUTROPHILS # (AUTO) 4.6 K/uL (1.8-8.9); NEUTROPHILS % (AUTO) 60.5 % (43.0-81.0); PLATELET COUNT (AUTO) 174 K/uL (150-450); RED BLOOD CELL COUNT(AUTO) 4.21 MIL/uL (4.5-6.0); WHITE BLOOD COUNT (AUTO) 7.6 K/uL (4.3-11.0)
[2021-01-04 12:48] LABS: CALCIUM, SERUM 8.4 mg/dL (8.5-10.1); CARBON DIOXIDE 30 mmol/L (21-32); CHLORIDE 102 mmol/L (98-107); CREATININE 1.1 mg/dL (0.6-1.3); GLUCOSE 138 mg/dL (74-106); POTASSIUM 5.3 mmol/L (3.5-5.1); SODIUM SERUM 138 mmol/L (136-145); UREA NITROGEN, BLOOD 17 mg/dL (7-18)
[2021-01-04] MEDS ORDERED: IPRATROPIUM NEB FS 0.5 MG/2.5 ML AMPUL.NEB ONE (12:54)
[2021-01-04] MEDS ORDERED: methylPREDNISolone SOD SUCC 125 MG/2ML VIAL ONE (12:54)
[2021-01-04] MEDS ORDERED: ALBUTEROL FS 2.5 MG/3 ML VIAL.NEB ONE (12:54)
[2021-01-04 13:00] LABS: ALANINE AMINOTRANSFERASE 30 U/L (12-78); ALBUMIN 3.4 g/dL (3.4-5.0); ALKALINE PHOSPHATASE 103 U/L (46-116); ASPARTATE AMINOTRANSFERASE 25 U/L (15-37); BILIRUBIN,DIRECT 0.2 mg/dL (0.0-0.2); BILIRUBIN,TOTAL 0.9 mg/dL (0.2-1.0)
--- NOTE | 2021-01-04 13:02 | NUR ---
BIBS FROM HOME TO ER BE D10. AAOX4. NOT IN RESP DISTRESS. AMBULATORY. CAME IN FOR BILAT LOWER LEG EDEMA THAT HAS BEEN PROGRESSIVELY GETTING WORST IN THE PAST WEEK. PT ALSO REPORTS ASSOCIATED EXERTIONAL DYSPNEA. MD WAS AT THE BEDSIDE FOR EVAL. ORDERS RECEIVED, NOTED AND CARREID OUT. IV LINE ESTABLISHED ON THE RFA 20G. PT ON MONITOR. US DONE AT BEDSIDE. BLOOD DRAWN.
[2021-01-04] MEDS ORDERED: FUROSEMIDE 20 MG/2 ML VIAL IV ONE (13:30)
[2021-01-04] MEDS ORDERED: FUROSEMIDE 20 MG/2 ML VIAL ONE (13:41)
--- NOTE | 2021-01-04 15:08 | NUR ---
[facility] CALLED [facility].
--- NOTE | 2021-01-04 16:23 | NUR ---
BED 313-1
--- NOTE | 2021-01-04 16:44 | NUR ---
REPORT GIVEN NURSE WHITNEY
--- NOTE | 2021-01-04 17:04 | NUR ---
THE PATIENT IS TRANSFERED TO [facility] IN STABLE CONDITION AND PER POLICY.
--- NOTE | 2021-01-04 17:13 | NUR ---
MS TELE NOTE RECEIVED ADMISSION IN IN ROOM 313-1. PATIENT IS ALERT AND ORIENTED X 4. NO SIGNS OR SYMPTOMS OF DISTRESS NOTED. BREATHING IS EVEN AND UNLABORED. NO COMPLAINTS OF PAIN AT THIS TIME. IV ACCESS RFA#20 PATENT AND INTACT. ORIENTED PATIENT TO STAFF AND UNIT. CALL LIGHT IS WITHIN REACH. SAFETY MEASURES IN PLACE WITH BED AT LOW POSITION AND SIDE RAILS UP X 2. WILL CONTINUE TO MONITOR PATIENT THROUGHOUT SHIFT.
[2021-01-04] MEDS ORDERED: Z GUARD REMEDY 2 OZ OINT TP PRN (17:30)
[2021-01-04] MEDS ORDERED: HYDROCODONE/APAP 10/325MG TABLET PO PRN (17:30)
[2021-01-04] MEDS ORDERED: LORAZEPAM 1 MG TABLET PO PRN (17:30)
[2021-01-04] MEDS ORDERED: ONDANSETRON HCL/PF 4 MG/2 ML VIAL IVP PRN (17:30)
[2021-01-04] MEDS ORDERED: MAG HYDROX/AL HYDROX/SIMETH 30 ML UDC PO PRN (17:30)
[2021-01-04] MEDS ORDERED: ACETAMINOPHEN 325 MG TABLET PO PRN (17:30)
[2021-01-04] MEDS ORDERED: MAGNESIUM HYDROXIDE 30 ML UDC PO PRN (17:30)
[2021-01-04] MEDS: ENOXAPARIN SODIUM 40 MG/0.4 ML DISP.SYRIN SQ SCH (18:44)
--- NOTE | 2021-01-04 18:51 | NUR ---
TELE CLOSING NOTE PATIENT IS RESTING IN BED COMFORTABLY, ALERT AND ORIENTED X 4. NO SIGNS OR SYMPTOMS OF DISTRESS NOTED. PATIENT IS ON ROOM AIR, TOLERATING WELL. PATIENT HAS AN EXTERNAL TEL MONITOR WITH SINUS RHYTHM IN 60'S. BREATHING IS EVEN AND UNLABORED. NO COMPLAINTS OF PAIN AT THIS TIME. IV ACCESS RFA#20 PATENT AND INTACT. CALL LIGHT AND BEDSIDE TABLE IS WITHIN REACH. SAFETY MEASURES IN PLACE WITH BED AT LOW POSITION AND SIDE RAILS UP X 2. WILL ENDORSE CONTINUITY OF CARE TO NEXT NURSE.
[2021-01-04] MEDS: ALBUTEROL FS 2.5 MG/0.5 ML VIAL.NEB NEB SCH (19:30)
--- NOTE | 2021-01-04 19:40 | NUR ---
RN NOTES RECEIVED PATIENT AWAKE ON HIS BED, A/OX4, AMBULATORY DENIES PAIN, NO SOB, CALL LIGHT WITHINREACH, SIDERAILSUPX2, WILL CONTINUE TO MONITOR
[2021-01-04 20:00] VITALS: BP 129/69
[2021-01-04] MEDS: ALBUTEROL FS 2.5 MG/3 ML VIAL.NEB NEB SCH ×2 (20:14→23:30)
[2021-01-04] MEDS: IPRATROPIUM NEB FS 0.5 MG/2.5 ML AMPUL.NEB NEB SCH (20:14)
[2021-01-04] MEDS: methylPREDNISolone SOD SUCC 125 MG/2ML VIAL IV SCH (21:25)
[2021-01-05] VITALS (7 sets, daily range): BP systolic 114–159; BP diastolic 54–87
--- NOTE | 2021-01-05 01:00 | NUR ---
RN NOTES PT. ASKED FOR SLEEPING PILLS- AMBIEN 5 MG PO GIVEN ORDERED, V/S STABLE
[2021-01-05] MEDS: ZOLPIDEM TARTRATE 5 MG TABLET PO PRN (01:06)
[2021-01-05] MEDS: ALBUTEROL FS 2.5 MG/0.5 ML VIAL.NEB NEB SCH ×4 (01:49→20:20)
[2021-01-05] MEDS: IPRATROPIUM NEB FS 0.5 MG/2.5 ML AMPUL.NEB NEB SCH ×4 (01:49→20:20)
[2021-01-05] MEDS: ALBUTEROL FS 2.5 MG/3 ML VIAL.NEB NEB SCH ×2 (03:29→07:35)
[2021-01-05] MEDS: methylPREDNISolone SOD SUCC 125 MG/2ML VIAL IV SCH ×2 (05:30→12:05)
--- NOTE | 2021-01-05 06:25 | NUR ---
RN NOTES AWAKE,MORNING CARE RENDERED, DENIES PAIN, NO SOB,CALL LIGHT WITHIN REACH, SIDERAILSUPX2, PT. NEEDS ATTENDED
[2021-01-05 07:14] LABS: CALCIUM, SERUM 8.9 mg/dL (8.5-10.1); CREATININE 1.2 mg/dL (0.6-1.3); MAGNESIUM 1.9 mg/dL (1.8-2.4); PHOSPHORUS 3.1 mg/dL (2.5-4.9); POTASSIUM 4.9 mmol/L (3.5-5.1)
--- NOTE | 2021-01-05 07:16 | NUR ---
CYBER SECURITY CONSULTANT OPENING NOTE RECEIVED PATIENT IS RESTING IN BED COMFORTABLY, ALERT AND ORIENTED X 4. BREATHING EVENLY NONLABORED. NO SIGNS OR SYMPTOMS OF DISTRESS NOTED. PATIENT IS ON ROOM AIR, TOLERATING WELL. PATIENT HAS AN EXTERNAL TEL MONITOR WITH SINUS RHYTHM IN 60'S.. NO COMPLAINTS OF PAIN AT THIS TIME. IV ACCESS RFA#20 PATENT AND INTACT. CALL LIGHT AND BEDSIDE TABLE IS WITHIN REACH. SAFETY MEASURES IN PLACE WITH BED AT LOW POSITION AND SIDE RAILS UP X 2. WILL CONTINUE TO MONITOR
[2021-01-05 07:52] LABS: BASOPHILS % (AUTO) 0.3 % (0.0-2.0); HEMATOCRIT 42 % (39-51); HEMOGLOBIN 13.8 g/dL (13.5-17.5); LYMPHOCYTES # (AUTO) 1.2 K/uL (0.8-4.8); LYMPHOCYTES % (AUTO) 10.2 % (20.0-44.0); MEAN CORPUSCULAR HGB CONC 33 g/dl (31.0-36.0); MEAN CORPUSCULAR VOLUME 98 fL (80-96); MONOCYTES # (AUTO) 0.2 K/uL (0.1-1.30); MONOCYTES % (AUTO) 1.4 % (2.0-12.0); NEUTROPHILS # (AUTO) 10.4 K/uL (1.8-8.9); NEUTROPHILS % (AUTO) 88.1 % (43.0-81.0); PLATELET COUNT (AUTO) 193 K/uL (150-450); RED BLOOD CELL COUNT(AUTO) 4.33 MIL/uL (4.5-6.0); WHITE BLOOD COUNT (AUTO) 11.8 K/uL (4.3-11.0)
[2021-01-05] MEDS ORDERED: FUROSEMIDE 40 MG/4 ML VIAL IV SCH (09:00)
--- NOTE | 2021-01-05 09:00 | NUR ---
RN NOTE PATIENT STATED HE WAS ON [facility], NOTIFIED MD WHO STATED TO CALL [facility] TO HAVE THEM FAX DOSE TO PHARMACY. REQUEST SENT AND COPIES SENT TO PHARMACY. PHARMACY WILL CONFIRM. WILL CONTINUE TO MONITOR
[2021-01-05] MEDS: METHADONE HCL 10 MG TABLET PO SCH (10:57)
[2021-01-05 13:11] LABS: BILIRUBIN,URINE NEGATIVE (NEGATIVE); LEUKOCYTE ESTERASE ,URINE NEGATIVE (NEGATIVE); NITRITE, URINE NEGATIVE (NEGATIVE); PH,URINE 5.5 (5.0-8.0); PROTEIN,URINE NEGATIVE (NEGATIVE); UGLUCOSE NEGATIVE (NEGATIVE); UROBILINOGEN,URINE 0.2 EU/dL (0.2)
[2021-01-05 13:13] LABS: COLOR,URINE STRAW (YELLOW)
[2021-01-05] MEDS: ENOXAPARIN SODIUM 40 MG/0.4 ML DISP.SYRIN SQ SCH (17:11)
--- NOTE | 2021-01-05 18:23 | NUR ---
MS RN CLOSING NOTE PATIENT IS RESTING IN BED COMFORTABLY, ALERT AND ORIENTED X 4. BREATHING EVENLY NONLABORED. NO SIGNS OR SYMPTOMS OF DISTRESS NOTED. PATIENT IS ON ROOM AIR, TOLERATING WELL. NO COMPLAINTS OF PAIN AT THIS TIME. IV ACCESS RFA#20 PATENT AND INTACT. PATIENT'S MEDICATIONS GIVEN ORDERED. SAFETY MEASURES ARE IN PLACE: BED LOW LOCKED, CALL LIGHT AND BEDSIDE TABLE IS WITHIN REACH. SAFETY MEASURES IN PLACE WITH BED AT LOW POSITION AND SIDE RAILS UP X 2. WILL ENDORSE TO ONCOMING SHIFT
--- NOTE | 2021-01-05 19:30 | NUR ---
MS RN OPENING NOTE RECEIVED PT AWAKE IN BED. A/O X4. PT IS STABLE ON ROOM AIR. NO SOB OR S/S OF RESPIRATORY DISTRESS NOTED. PT HAS NO C/O PAIN OR DISCOMFORT AT THIS TIME. IV ACCESS IN RFA #20, INTACT AND PATENT. SAFETY MEASURES MAINTAINED. BED IN LOWEST LOCKED POSITION, HOB ELEVATED, SIDE RAILS UP X2. CALL LIGHT AND TABLE WITHIN REACH. WILL CONTINUE WITH PLAN OF CARE.
[2021-01-05] MEDS: METOLAZONE 2.5 MG TABLET PO SCH (20:06)
[2021-01-05] MEDS: methylPREDNISolone SOD SUCC 40 MG/ML VIAL IV SCH (20:12)
[2021-01-05] MEDS ORDERED: methylPREDNISolone SOD SUCC 125 MG/2ML VIAL IV SCH (21:00)
[2021-01-06] MEDS: ZOLPIDEM TARTRATE 5 MG TABLET PO PRN (01:00)
[2021-01-06] MEDS: IPRATROPIUM NEB FS 0.5 MG/2.5 ML AMPUL.NEB NEB SCH ×2 (01:30→08:27)
[2021-01-06] MEDS: ALBUTEROL FS 2.5 MG/0.5 ML VIAL.NEB NEB SCH ×2 (01:30→08:27)
[2021-01-06] MEDS: methylPREDNISolone SOD SUCC 40 MG/ML VIAL IV SCH (04:34)
--- NOTE | 2021-01-06 06:27 | NUR ---
MS RN CLOSING NOTE PT IS AWAKE IN BED. A/O X4. PT IS STABLE ON ROOM AIR. NO SOB OR S/S OF RESPIRATORY DISTRESS NOTED. PT DENIES PAIN OR DISCOMFORT AT THIS TIME. IV ACCESS IS INTACT, PATENT, AND FLUSHING WELL. ALL NEEDS HAVE BEEN MET. SAFETY PRECAUTIONS MAINTAINED AT ALL TIMES. BED IN LOWEST LOCKED POSITION, HOB ELEVATED, SIDE RAILS UP X2. CALL LIGHT AND TABLE WITHIN REACH. WILL ENDORSE TO ONCOMING NURSE FOR LORIE.
[2021-01-06 07:07] LABS: BASOPHILS # (AUTO) 0.1 K/uL (0.0-0.2); BASOPHILS % (AUTO) 0.3 % (0.0-2.0); HEMATOCRIT 42 % (39-51); HEMOGLOBIN 13.7 g/dL (13.5-17.5); LYMPHOCYTES # (AUTO) 1.4 K/uL (0.8-4.8); LYMPHOCYTES % (AUTO) 7.5 % (20.0-44.0); MEAN CORPUSCULAR HGB CONC 33 g/dl (31.0-36.0); MEAN CORPUSCULAR VOLUME 98 fL (80-96); MONOCYTES # (AUTO) 0.5 K/uL (0.1-1.30); MONOCYTES % (AUTO) 2.8 % (2.0-12.0); NEUTROPHILS # (AUTO) 16.4 K/uL (1.8-8.9); NEUTROPHILS % (AUTO) 89.4 % (43.0-81.0); PLATELET COUNT (AUTO) 195 K/uL (150-450); RED BLOOD CELL COUNT(AUTO) 4.29 MIL/uL (4.5-6.0); WHITE BLOOD COUNT (AUTO) 18.4 K/uL (4.3-11.0)
--- NOTE | 2021-01-06 07:10 | NUR ---
CASH RECONCILIATION SPECIALIST OPENING NOTE RECEIVED PATIENT ALERT AND ORIENTED X 4. BREATHING EVENLY NONLABORED. NO SIGNS OR SYMPTOMS OF DISTRESS NOTED. PATIENT IS ON ROOM AIR, TOLERATING WELL. NO COMPLAINTS OF PAIN AT THIS TIME. IV ACCESS RFA#20 PATENT AND INTACT. CALL LIGHT AND BEDSIDE TABLE IS WITHIN REACH. SAFETY MEASURES IN PLACE WITH BED AT LOW POSITION AND SIDE RAILS UP X 2. WILL CONTINUE TO MONITOR
[2021-01-06 07:38] LABS: ALBUMIN 3.5 g/dL (3.4-5.0); BILIRUBIN,TOTAL 0.7 mg/dL (0.2-1.0); CALCIUM, SERUM 8.8 mg/dL (8.5-10.1); CREATININE 1.2 mg/dL (0.6-1.3); MAGNESIUM 2.1 mg/dL (1.8-2.4); PHOSPHORUS 3.2 mg/dL (2.5-4.9); POTASSIUM 4.8 mmol/L (3.5-5.1)
--- NOTE | 2021-01-06 07:54 | NUR ---
WOUND CARE CONSULT: PT STATES THAT HIS SWELLING AND ITCHING ON LOWER LEGS HAS RESOLVED. EDEMA NOTED TO BE RESOLVING AND SOME SCRATCH BETTS NOTED TO LOWER LEGS. NO DRAINAGE OR ERYTHEMA NOTED. WILL SEE PRN.
[2021-01-06 08:11] VITALS: BP 143/94
--- NOTE | 2021-01-06 08:15 | NUR ---
MS RN NOTE PATIENT SEEN BY DR. MILLER WITH NO NEW ORDER AT THIS TIME.
[2021-01-06 08:19] LABS: TOTAL PROTEIN, SERUM 7.5 g/dL (6.4-8.2)
[2021-01-06] MEDS: METOLAZONE 2.5 MG TABLET PO SCH (08:55)
[2021-01-06] MEDS: METHADONE HCL 10 MG TABLET PO SCH (08:57)
[2021-01-06] MEDS ORDERED: PRED20TA PO (09:00)
[2021-01-06] MEDS ORDERED: FUROSEMIDE 40 MG TABLET PO SCH (09:00)
[2021-01-06] MEDS ORDERED: FUROSEMIDE 40 MG/4 ML VIAL IV SCH (09:00)
[2021-01-06] MEDS ORDERED: FLUT1DIS INH (09:00)
[2021-01-06] MEDS ORDERED: ALBU6.7H9 INH (09:00)
--- NOTE | 2021-01-06 10:25 | NUR ---
MS RN NOTE PATIENT SEEN BY DR. SHAW WITH ORDERS MADE AND CARRIED OUT. PATIENT FOR DISCHARGE. HEALTH TEACHING DONE REGARDING DISCHARGE, MEDICATIONS, DISEASE PROCESS AND MANAGEMENT AND SAFETY/ FALL PRECAUTION. VERBALIZED UNDERSTANDING AND APPRECIATION. PATIENT WILL BE PICKED UP BY . APPARENTLY, PATIENT LIVES [address]. COMFORT MEASURES PROVIDED. ENCOURAGED TO DO DEEP BREATHING EXERCISES. NOT IN DISTRESS. WILL CONTINUE TO MONITOR PATIENT.
--- NOTE | 2021-01-06 11:00 | NUR ---
MS RN NOTE PATIENT DISCHARGED ORDERED. ALL HEALTH TEACHINGS AND INSTRUCTIONS PROVIDED TO PATIENT INCLUDING FOLLOW-UP APPOINTMENTS. PICTURES TAKEN AND ATTACHED TO CHART. IV ACCESS REMOVED AND COVERED WITH DRESSING, WITH NO SIGNS OF BLEEDING NOTED AND PROCEDURE TOLERATED WELL. PATIENT ACCOMPANIED BY FALL INTERNSHIP TO LOBBY TO MEET . PATIENT IN STABLE CONDITION.
== END 2021-01-06 10:54 | disposition home or self-care (01) | DRG 140 ==
LOC: ER 11:25 → TELE 16:49 → MED 01-05 11:29
PROVIDERS: ADMIT Internal Medicine; ATTEND Internal Medicine
DX: J44.1 Chronic obstructive pulmonary disease with (acute) exacerbation (principal); J96.01 Acute respiratory failure with hypoxia; I27.81 Cor pulmonale (chronic); K74.60 Unspecified cirrhosis of liver; E87.1 Hypo-osmolality and hyponatremia; F41.9 Anxiety disorder, unspecified; G89.29 Other chronic pain; B19.20 Unspecified viral hepatitis C without hepatic coma; M19.90 Unspecified osteoarthritis, unspecified site; Z79.51 Long term (current) use of inhaled steroids; F11.11 Opioid abuse, in remission; E66.9 Obesity, unspecified; E87.5 Hyperkalemia; Z68.36 Body mass index [BMI] 36.0-36.9, adult; R73.9 Hyperglycemia, unspecified; T38.0X5A Adverse effect of glucocorticoids and synthetic analogues, initial encounter; Y92.9 Unspecified place or not applicable; Z98.890 Other specified postprocedural states; F17.200 Nicotine dependence, unspecified, uncomplicated; I70.0 Atherosclerosis of aorta
CPT/HCPCS: 36415; 71045-TC; 80048-TC; 80053-TC; 80076-TC; 83605-TC; 83735-TC; 83880; 84100-TC; 84484-TC; 85025-TC; 87081-TC; 93307-TC; 93970-TC; C9803; G0378; J1650; J1940; J2920; J2930

== ENCOUNTER 2021-01-14 12:24 | Emergency (ER) | payer MEDICAID ==
[~2021-01-14] VITALS: Ht 193 cm; Wt 132.0 kg
[~2021-01-14 12:24] MED LIST changes: +ALBU6.7H9 INH; +FLUT1DIS INH
[2021-01-14 13:43] LABS: BASOPHILS # (AUTO) 0.1 K/uL (0.0-0.2); BASOPHILS % (AUTO) 1.3 % (0.0-2.0); EOSINOPHILS % (AUTO) 1.5 % (0.0-6.0); HEMATOCRIT 44 % (39-51); HEMOGLOBIN 14.3 g/dL (13.5-17.5); LYMPHOCYTES # (AUTO) 3.2 K/uL (0.8-4.8); LYMPHOCYTES % (AUTO) 33.4 % (20.0-44.0); MEAN CORPUSCULAR HGB CONC 33 g/dl (31.0-36.0); MEAN CORPUSCULAR VOLUME 98 fL (80-96); MONOCYTES % (AUTO) 10.1 % (2.0-12.0); NEUTROPHILS # (AUTO) 5.1 K/uL (1.8-8.9); NEUTROPHILS % (AUTO) 53.7 % (43.0-81.0); PLATELET COUNT (AUTO) 255 K/uL (150-450); RED BLOOD CELL COUNT(AUTO) 4.45 MIL/uL (4.5-6.0); WHITE BLOOD COUNT (AUTO) 9.5 K/uL (4.3-11.0)
--- NOTE | 2021-01-14 14:15 | NUR ---
PATIENT UNABLE TO GIVE URINE AT THIS TIME.
[2021-01-14 14:26] LABS: CALCIUM, SERUM 8.9 mg/dL (8.5-10.1); CREATININE 1.2 mg/dL (0.6-1.3); POTASSIUM 4.2 mmol/L (3.5-5.1)
[2021-01-14 14:33] LABS: ALBUMIN 3.6 g/dL (3.4-5.0); BILIRUBIN,DIRECT 0.2 mg/dL (0.0-0.2); BILIRUBIN,TOTAL 0.9 mg/dL (0.2-1.0); TOTAL PROTEIN, SERUM 7.3 g/dL (6.4-8.2)
[2021-01-14 14:36] LABS: BILIRUBIN,URINE SMALL (NEGATIVE); COLOR,URINE YELLOW (YELLOW); LEUKOCYTE ESTERASE ,URINE Negative (NEGATIVE); NITRITE, URINE Negative (NEGATIVE); PH,URINE 5.5 (5.0-8.0); PROTEIN,URINE 30 mg/dl (NEGATIVE); UGLUCOSE Negative (NEGATIVE)
[2021-01-14 14:38] LABS: WBC,URINE 0-2 /HPF (0-3)
[2021-01-14 14:39] LABS: BACTERIA,URINE Rare /HPF (None Seen); RBC,URINE 0-2 /HPF (0-2); SQUAMOUS EPITHELIAL CELL,UR None Seen /HPF (None Seen)
[2021-01-14] MEDS ORDERED: IV NS 0.9% 0 ML IV ONE (14:52)
[2021-01-14] MEDS ORDERED: IOHEXOL-300 100 ML VIAL IV ONE ×2 (14:52→15:26)
--- NOTE | 2021-01-14 15:05 | NUR ---
US TECH AT BEDSIDE FOR US GALLBLADDER
[2021-01-14] MEDS ORDERED: IV NS 0.9% 250 ML IV ONE (15:26)
--- NOTE | 2021-01-14 16:27 | NUR ---
PATIENT RESTING, NO DISTRESS NOTED. CALLED RADIOLOGY TO FOLLOW UP IMAGING RESULTS.
[2021-01-14] MEDS ORDERED: NA P133E RC (17:06)
[2021-01-14] MEDS ORDERED: BISA-79 PR (17:07)
[2021-01-14] MEDS ORDERED: POLY17PO4 PO (17:08)
--- NOTE | 2021-01-14 17:17 | NUR ---
Patient a/ox4, breathing even and unlabored, no sob noted. Needs attended. IV removed. Catheter intact and site benign. Pressure and 4x4 applied to site. No bleeding noted.Patient discharged to home in stable condition. Written and verbal after care instructions given. Patient verbalizes understanding of instruction.
[2021-01-14 17:18] VITALS: BP 132/75
== END 2021-01-14 17:18 | disposition home or self-care (01) ==
LOC: ER 12:49
DX: K59.00 Constipation, unspecified (principal); N28.1 Cyst of kidney, acquired; K76.0 Fatty (change of) liver, not elsewhere classified; I10 Essential (primary) hypertension; I25.10 Atherosclerotic heart disease of native coronary artery without angina pectoris; G89.29 Other chronic pain; M54.5 Low back pain; F41.9 Anxiety disorder, unspecified; F10.10 Alcohol abuse, uncomplicated; F17.200 Nicotine dependence, unspecified, uncomplicated; E66.9 Obesity, unspecified; Y90.9 Presence of alcohol in blood, level not specified; Z68.35 Body mass index [BMI] 35.0-35.9, adult; Z79.899 Other long term (current) drug therapy; Z86.19 Personal history of other infectious and parasitic diseases; Z98.890 Other specified postprocedural states
CPT/HCPCS: 36415; 71045; 74177; 76705; 80048; 80076; 81001; 83690; 83880; 85025; 99285; J7050; Q9967

== ENCOUNTER 2022-01-04 06:46 | Emergency (ER) | payer MEDICAID ==
[~2022-01-04] VITALS: Ht 193 cm; Wt 131.5 kg
[~2022-01-04 06:46] MED LIST changes: +BISA-79 PR; +NA P133E RC; +POLY17PO4 PO
--- NOTE | 2022-01-04 06:50 | NUR ---
ZINA 87 FROM HOME FOR OVERDOSE ON FENTANYL. PT AWAKE AND RESPONSIVE; REFUSED TO RESPOND TO QUESTIONS. RESP EVEN AND NON LABORED ON R/A; TOLERATING WELL. CONNECTED PT TO POX AND MONITOR. SAFETY MEASURES IN PLACE.
--- NOTE | 2022-01-04 07:00 | NUR ---
Note baudilio in EDM - 01/04/22 at 0717 by LITO TO ER BED 12. TO ER BED 12. [id number] FROM HOME FOR OVERDOSE ON FENTANYL, PT IS LETHARGIC, ORIENTED TO NAME AND PLACE. PT IS ABLE TO ANSWER QUESTIONS. BREATHING IS EVEN AND NONLABORED. CONNECTED TO MONITOR. SAFETY PRECAUTIONS IN PLACE. AWAITING MD GOTTI
--- NOTE | 2022-01-04 07:23 | NUR ---
CUSTOMER RELATIONS ADVISOR AT PT'S BEDSIDE
[2022-01-04 07:57] LABS: CALCIUM, SERUM 8.4 mg/dL (8.5-10.1); CARBON DIOXIDE 31 mmol/L (21-32); CHLORIDE 104 mmol/L (98-107); CREATININE 1.2 mg/dL (0.6-1.3); GLUCOSE 147 mg/dL (74-106); POTASSIUM 4.1 mmol/L (3.5-5.1); SODIUM SERUM 140 mmol/L (136-145); UREA NITROGEN, BLOOD 20 mg/dL (7-18)
[2022-01-04 08:02] LABS: BASOPHILS % (AUTO) 0.5 % (0.0-2.0); EOSINOPHILS % (AUTO) 2.5 % (0.0-6.0); HEMATOCRIT 40 % (39-51); HEMOGLOBIN 12.9 g/dL (13.5-17.5); LYMPHOCYTES # (AUTO) 1.8 K/uL (0.8-4.8); MEAN CORPUSCULAR HGB CONC 33 g/dl (31.0-36.0); MEAN CORPUSCULAR VOLUME 97 fL (80-96); MONOCYTES # (AUTO) 0.6 K/uL (0.1-1.30); MONOCYTES % (AUTO) 11.6 % (2.0-12.0); NEUTROPHILS # (AUTO) 2.5 K/uL (1.8-8.9); NEUTROPHILS % (AUTO) 49.4 % (43.0-81.0); PLATELET COUNT (AUTO) 200 K/uL (150-450); RED BLOOD CELL COUNT(AUTO) 4.09 MIL/uL (4.5-6.0)
[2022-01-04 08:05] LABS: ALANINE AMINOTRANSFERASE 33 U/L (12-78); ALBUMIN 3.6 g/dL (3.4-5.0); ALCOHOL, BLOOD < 3 mg/dL (0-0); ALKALINE PHOSPHATASE 111 U/L (46-116); ASPARTATE AMINOTRANSFERASE 29 U/L (15-37); BILIRUBIN,DIRECT 0.2 mg/dL (0.0-0.2); BILIRUBIN,TOTAL 0.7 mg/dL (0.2-1.0)
[2022-01-04 08:06] LABS: ACETAMINOPHEN < 10 ug/ml (10-30)
--- NOTE | 2022-01-04 08:15 | NUR ---
PT PROVIDED W/ WARM BLANKET. VERBALLY RESPONSIVE AND ABLE TO MAKE SIMPLE NEEDS KNOWN.
[2022-01-04] MEDS ORDERED: NALO4SPR BNOSTRILS (10:23)
[2022-01-04 10:32] VITALS: BP 128/77
--- NOTE | 2022-01-04 10:32 | NUR ---
Patient discharged to home in stable condition. Written and verbal after care instructions given. Patient verbalizes understanding of instruction.
--- NOTE | 2022-01-04 10:42 | NUR ---
SS Note: SS consult requested for overdose. Pt. Is a 66-year-old male. Per EMR, pt. was brought in for overdose on Fentanyl. Pt. presents alert and oriented x3 (self, time, situation). Pt. appeared unkempt, made appropriate eye-contact, and was cooperative during interview. Pt. reported no hx of mental health. Pt. denies suicidal ideation and homicidal ideation. Pt. reported no auditory hallucinations, visual hallucinations, paranoia, or delusions. CELE explored pt.'s substance use. Pt. reported that he has been sober for many years and relapsed today. Pt. was a Heroin user. Per pt., he remembered snorting a pill but thought it was Xanax. Pt. stated that this never happened before and it's his first time. Per pt., he has been to [facility] long ago but would never go back to rehab. Pt. stated that he "hated it and would never go back." CELE explored pt.'s living situation. Per pt., he lives with his Mary [[phone], [address] [place] [address]], pt. was able to confirm address. Per pt., his is very supportive. CEEL met with pt. and provided him with referrals to [facility]: [address] [place] [address]- [phone], [facility]: [address] [place] [phone], and [facility]: [address] [place] [address]: [phone]. Per pt., he will present for treatment at to [facility]: [address] [place] [address]- [phone]. fabric lay out worker provided support with motivational interviewing, education regarding opioid dependence, brief intervention, and referral to treatment. Patient has not received prior treatment for opioid dependence. Report was given to MD Oro in ER. Plan: SW provided available resources and pt. accepted. Upon discharge, pt. will go back home with . CELE contacted the , and she is currently here in the hospital to collect pt. Resources Provided: [facility]: [address] [place] [address] Intake hours: 5:45am-9:00am, walk-ins Tuesday, Tuesday, [facility]: [address] [place] [address] Intake hours: 5:45am-12:30pm, Tuesday and [facility]: [address] [place] [address] Intake hours: 8:00am-2:00pm, Tuesday through Tuesday Substance Abuse resources provided included: [facility] Substance Abuse Self-Helpline ([facility]) ; [facility] [address] [facility]. [place] [id number] ; [address] [address] ; [facility] [address] [facility] [address] ; [facility] [address] [id number] ; [facility] [address] [facility] [address] ; [facility] [address] [facility] [phone] ; [facility]stance Abuse Helpl[facility] ; [facility] ; [facility]; [facility]; [facility] [place]; [facility] [address]; [facility] [place]; [facility]; [facility] Marcelo; Located within [facility], [facility]. Rosana Harvey; Alcoholics Anonymous -sfv; Makenna ; Marijuana Anonymous [facility]; Narcotics Anonymous www.na.org;
== END 2022-01-04 10:32 | disposition home or self-care (01) ==
LOC: ER 06:48
DX: T40.601A Poisoning by unspecified narcotics, accidental (unintentional), initial encounter (principal); R53.83 Other fatigue; I10 Essential (primary) hypertension; F17.200 Nicotine dependence, unspecified, uncomplicated; Z79.899 Other long term (current) drug therapy; Y92.89 Other specified places as the place of occurrence of the external cause
CPT/HCPCS: 36415; 71045-TC; 80048-TC; 80076-TC; 83880; 84484-TC; 85025-TC; G0480

== ENCOUNTER → 2022-11-18 | Emergency (ER) | payer OTHER ==
[~2022-11-18] VITALS: Ht 193 cm; Wt 117.9 kg
[~2022-11-18] MED LIST changes: +NALO4SPR BNOSTRILS
--- NOTE | 2022-11-18 12:57 | NUR ---
BIBS STATING "EVERYTHING HURTS" SLIPPED GOING DOWN THE STAIRS AT 1830 LAST NIGHT. ATTACHED TO MONITOR, VITALS ARE WITHIN NORMAL LIMITS. AWAITING MD GOTTI.
[2022-11-18 13:00] VITALS: BP 133/74
--- NOTE | 2022-11-18 13:14 | NUR ---
Patient discharged to home in stable condition. Written and verbal after care instructions given. Patient verbalizes understanding of instruction.
== END | disposition home or self-care (01) ==
LOC: ER 13:05
DX: M54.50 Low back pain, unspecified (principal); G89.29 Other chronic pain; F11.90 Opioid use, unspecified, uncomplicated; I10 Essential (primary) hypertension; F17.200 Nicotine dependence, unspecified, uncomplicated; Z79.899 Other long term (current) drug therapy
CPT/HCPCS: 99281; J7030

== ENCOUNTER 2023-01-17 17:44 | Emergency (ER) | payer OTHER, BC ==
[~2023-01-17] VITALS: Ht 193 cm; Wt 120.2 kg
[~2023-01-17 17:44] MED LIST changes: +CEPH500C2 PO; +CEPH500T PO; +FURO-145 PO; +POTA-58 PO; +SULF1TAB48 PO
--- NOTE | 2023-01-17 18:45 | NUR ---
PATIENT CAME WITH BOTH LOWER LEG REDNESS AND SWELLING.ALERT AND ORIENTED.ON ROOM AIR.ATTACHED TO MONITOR.AWAITING FOR MD GOTTI
--- NOTE | 2023-01-17 19:15 | NUR ---
DR GABRIEL AT BED SIDE
--- NOTE | 2023-01-17 19:51 | NUR ---
US TECH AT BED SIDE
[2023-01-17] MEDS ORDERED: CEPH500C2 PO ×2 (20:08→20:13)
[2023-01-17] MEDS ORDERED: SULF1TAB48 PO ×2 (20:08→20:13)
--- NOTE | 2023-01-17 20:20 | NUR ---
Patient discharged to home in stable condition. Written and verbal after care instructions given. Patient verbalizes understanding of instruction.
[2023-01-17 20:22] VITALS: BP 135/70; TEMP 98.2; O2SAT 98
== END 2023-01-17 20:24 | disposition home or self-care (01) ==
LOC: ER 17:47
DX: L03.115 Cellulitis of right lower limb (principal); I10 Essential (primary) hypertension; Z79.899 Other long term (current) drug therapy
CPT/HCPCS: 93971-TC

== ENCOUNTER 2023-11-26 14:25 | Emergency (ER) | payer MEDICARE, OTHER ==
[~2023-11-26] VITALS: Ht 193 cm; Wt 117.9 kg
[2023-11-26 15:53] LABS: BASOPHILS % (AUTO) 0.6 % (0.0-2.0); EOSINOPHILS # (AUTO) 0.1 K/uL (0.0-0.7); EOSINOPHILS % (AUTO) 1.5 % (0.0-6.0); HEMATOCRIT 39 % (39-51); LYMPHOCYTES # (AUTO) 1.3 K/uL (0.8-4.8); LYMPHOCYTES % (AUTO) 23.8 % (20.0-44.0); MEAN CORPUSCULAR HEMOGLOBIN 34 PG (26.0-33.0); MEAN CORPUSCULAR HGB CONC 33 g/dl (31.0-36.0); MEAN CORPUSCULAR VOLUME 101 fL (80-96); MONOCYTES # (AUTO) 0.6 K/uL (0.1-1.30); MONOCYTES % (AUTO) 11.4 % (2.0-12.0); NEUTROPHILS # (AUTO) 3.4 K/uL (1.8-8.9); NEUTROPHILS % (AUTO) 62.7 % (43.0-81.0); PLATELET COUNT (AUTO) 128 K/uL (150-450); RED BLOOD CELL COUNT(AUTO) 3.87 MIL/uL (4.5-6.0); WHITE BLOOD COUNT (AUTO) 5.5 K/uL (4.3-11.0)
[2023-11-26 16:03] LABS: CALCIUM, SERUM 8.4 mg/dL (8.5-10.1); CARBON DIOXIDE 31 mmol/L (21-32); CHLORIDE 104 mmol/L (98-107); CREATININE 0.9 mg/dL (0.6-1.3); GLUCOSE 111 mg/dL (74-106); POTASSIUM 4.5 mmol/L (3.5-5.1); SODIUM SERUM 139 mmol/L (136-145); UREA NITROGEN, BLOOD 20 mg/dL (7-18)
[2023-11-26 16:16] LABS: NT-PRO BNP 343 pg/mL (0-125)
[2023-11-26] MEDS ORDERED: FURO-145 PO (17:03)
[2023-11-26 17:11] VITALS: BP 128/62; TEMP 98.2; O2SAT 95
== END 2023-11-26 17:11 | disposition home or self-care (01) ==
LOC: ER 14:25
DX: R60.0 Localized edema (principal); F11.10 Opioid abuse, uncomplicated; Z79.899 Other long term (current) drug therapy; I10 Essential (primary) hypertension
CPT/HCPCS: 36415; 71045-TC; 80048-TC; 83880; 84484-TC; 85025-TC

== ENCOUNTER 2025-04-18 18:24 | Emergency (ER) | payer MEDICARE, OTHER ==
[~2025-04-18] VITALS: Ht 193 cm; Wt 43.1 kg
[2025-04-18] MEDS ORDERED: ACETAMINOPHEN ES 500 MG TABLET ONE (19:01)
[2025-04-18] MEDS: ACETAMINOPHEN ES 500 MG TABLET PO ONE (19:06)
[2025-04-18 19:47] VITALS: BP 128/73; TEMP 97.8; O2SAT 98
== END 2025-04-18 19:48 | disposition home or self-care (01) ==
LOC: ER 18:34
DX: S40.011A Contusion of right shoulder, initial encounter (principal); S80.01XA Contusion of right knee, initial encounter; S90.01XA Contusion of right ankle, initial encounter; I10 Essential (primary) hypertension; J45.909 Unspecified asthma, uncomplicated; Z86.19 Personal history of other infectious and parasitic diseases; Z79.899 Other long term (current) drug therapy; Z79.52 Long term (current) use of systemic steroids; Z79.51 Long term (current) use of inhaled steroids; W01.0XXA Fall on same level from slipping, tripping and stumbling without subsequent striking against object, initial encounter; Y93.89 Activity, other specified; Y92.89 Other specified places as the place of occurrence of the external cause; Y99.8 Other external cause status
CPT/HCPCS: 73030-TC; 73564-TC; 73610-TC